=== PATIENT | male | born 1995 | race Caucasian/White ===

== ENCOUNTER 2022-12-19 09:29 | Emergency (ER) | payer OTHER ==
[~2022-12-19] VITALS: Ht 172.7 cm; Wt 100.1 kg
[2022-12-19 12:18] LABS: HEMATOCRIT 44.7 % (42.0-52.0); HEMOGLOBIN 15.2 g/dl (13.5-17.5); MEAN CORPUSCULAR HEMOGLOBIN 29.7 pg (27.0-33.0); MEAN CORPUSCULAR VOLUME 87.5 fl (80.0-96.0); PLATELET COUNT, AUTOMATED 276 10^3/uL (150-450); RED BLOOD COUNT 5.11 10^6/uL (4.30-6.10); WHITE BLOOD COUNT 11.8 10^3/uL (4.0-10.0)
[2022-12-19 12:45] LABS: EOSINOPHILS 3 % (0-3); LYMPHOCYTES 19 % (16-44); MONOCYTES 1 % (0-5); NEUTROPHILS 76 % (28-66); PLATELET ESTIMATE NORMAL (NORMAL)
[2022-12-19 13:20] LABS: ERYTHROCYTE SEDIMENTATION RATE 51 mm/hr (0-15)
[2022-12-19] MEDS ORDERED: LIDOCAINE 1% MDV 20ML VIAL SC ONE (15:20)
[2022-12-19 16:36] LABS: SOURCE, BODY FLUID LFT KNEE; SYNOVIAL FLUID COLOR YELLOW (COLORLESS)
[2022-12-19 16:51] LABS: CRYSTALS, BODY FLUID URIC ACID (NONE SEEN); SOURCE, BODY FLUID CRYSTALS LFT KNEE
[2022-12-19 17:31] LABS: SOURCE, BODY FLUID GLUCOSE LFT KNEE
[2022-12-19] MEDS ORDERED: NAPROXEN 250 MG TAB PO ONE (17:35)
[2022-12-19] MEDS ORDERED: OMEPRAZOLE 20MG CAP PO ONE (17:35)
[2022-12-19] MEDS ORDERED: COLCHICINE 0.6 MG TABLET PO ONE ×2 (17:35→18:30)
[2022-12-19] MEDS ORDERED: NAPR-837 PO (17:35)
[2022-12-19 18:02] VITALS: BP 124/67; TEMP 98; O2SAT 100
[2022-12-19 22:07] LABS: C REACTIVE PROTEIN QUANTITATIV 11.2 MG/DL (<1.0)
[2022-12-19 22:25] LABS: URIC ACID 8.2 MG/DL (3.7-9.2)
[2022-12-20 00:03] LABS: SOURCE, BODY FLUID URIC ACID LFT KNEE; URIC ACID, BODY FLUID 9.5 MG/DL (NOT ESTABLISHED)
== END 2022-12-19 18:04 | disposition home or self-care (01) ==
LOC: M ED 09:29
DX: M10.062 Idiopathic gout, left knee (principal); M25.462 Effusion, left knee; F17.200 Nicotine dependence, unspecified, uncomplicated; Z79.1 Long term (current) use of non-steroidal anti-inflammatories (NSAID)